=== PATIENT | male | born 1970 | race Caucasian/White ===

== ENCOUNTER 2022-06-14 09:34 | Inpatient (IN) | payer BC ==
[2022-06-14 10:07] LABS: #Eosinphils 0.1 10x3/uL (0.0-0.5); #Monocytes 1.2 10x3/uL (0.0-1.1); #Neutrophils 7.4 10x3/uL (1.5-8.4); %Basophils 0.4 % (0.0-2.0); %Eosinophils 0.6 % (0.0-6.0); %Lymphocytes 12.7 % (18.0-47.0); %Monocytes 12.2 % (0.0-10.0); %Neutrophils 73.3 % (40.0-75.0); Hemoglobin 13.3 g/dL (13.5-17.5); Mean Corpuscular HGB CONC 33.7 g/dL (32.0-36.0); Mean Corpuscular Hemoglobin 30.3 pg (27.0-33.0); Mean Platelet Volume 8.7 fl (7.4-10.4); Platelet Count 239 10x3/uL (150-450); RBC Distribution Width 13.2 % (11.5-14.5); Red Blood Cell (RBC) Count 4.39 10x6/uL (4.32-5.72); White Blood Cell (WBC) Count 10.1 10x3/uL (3.5-10.5)
[2022-06-14 10:19] LABS: ALT (SGPT) 31 U/L (8-55); AST (SGOT) 22 U/L (5-34); Albumin 4.5 g/dL (3.5-5.0); Alkaline Phosphatase 43 U/L (40-110); Anion Gap 18 mmol/L (10-20); BUN (Urea Nitrogen) 18 mg/dL (8.4-25.7); Bilirubin, Total 1.3 mg/dL (0.2-1.2); Calc. Creatinine Clearance 0 mL/min (70-130); Calcium 8.9 mg/dL (7.8-10.44); Carbon Dioxide 19 mmol/L (22-29); Chloride 102 mmol/L (98-107); Estimated GFR 89; Globulin 3.1 g/dL (2.4-3.5); Glucose 135 mg/dL (70-105); Lipase 9 U/L (8-78); Potassium 4.3 mmol/L (3.5-5.1); Protein, Total 7.6 g/dL (6.0-8.3); Sodium 135 mmol/L (136-145)
[2022-06-14] MEDS ORDERED: Morphine 4 MG/ML VIAL ONE ×2 (11:01→11:40)
[2022-06-14 11:20] LABS: CKMB 2.3 ng/mL (0-6.6)
[2022-06-14] MEDS ORDERED: Iopamidol 370 76% 100 ML VIAL ONE (14:31)
[2022-06-14] MEDS ORDERED: Furosemide 40 MG/4 ML VIAL ONE (14:37)
[2022-06-14] MEDS: Furosemide 40 MG/4 ML VIAL SLOW IVP SCH (14:38)
[2022-06-14] MEDS ORDERED: Acetaminophen 325 MG TAB PO PRN (15:01)
[2022-06-14] MEDS ORDERED: Ondansetron PF 4 MG/2 ML Vial IVP PRN (15:01)
[2022-06-14] MEDS ORDERED: Ondansetron ODT 4 MG TAB PO PRN (15:01)
[2022-06-14] MEDS ORDERED: Morphine 4 MG/ML VIAL SLOW IVP PRN (15:05)
[2022-06-14] MEDS ORDERED: Electrolyte Replacement Protocol 1 EACH FS SCH (15:15)
[2022-06-14 16:20] LABS: CKMB 1.9 ng/mL (0-6.6)
[2022-06-14 17:15] VITALS: BMI 37.2
[2022-06-14] MEDS: Carvedilol 12.5 MG TAB PO SCH (20:10)
[2022-06-14] MEDS: Colchicine 0.6 MG TAB PO SCH (20:10)
[2022-06-14] MEDS ORDERED: Apixaban 5 MG TAB PO SCH (21:00)
[2022-06-14 21:41] LABS: CKMB 1.4 ng/mL (0-6.6)
[2022-06-15] MEDS: Furosemide 40 MG/4 ML VIAL SLOW IVP SCH (06:20)
[2022-06-15 07:05] LABS: Magnesium 2.2 mg/dL (1.6-2.6)
[2022-06-15] MEDS: Carvedilol 12.5 MG TAB PO SCH (08:40)
[2022-06-15] MEDS: Colchicine 0.6 MG TAB PO SCH (08:40)
[2022-06-15] MEDS ORDERED: Losartan 25 MG TAB PO SCH (09:00)
[2022-06-15] MEDS ORDERED: Apixaban 5 MG TAB PO SCH (09:00)
[2022-06-15 13:41] VITALS: BP 126/65; TEMP 99.1
[2022-06-15] MEDS ORDERED: Furosemide 40 MG TAB PO SCH (14:00)
== END 2022-06-15 13:59 | disposition home or self-care (01) | DRG 186 ==
LOC: CSHERS 09:34 → CSHERHOLD 14:32 → CSHTELE 16:22
PROVIDERS: ADMIT Internal Medicine; ATTEND Internal Medicine
DX: J90 Pleural effusion, not elsewhere classified (principal); J96.01 Acute respiratory failure with hypoxia; I42.2 Other hypertrophic cardiomyopathy; I10 Essential (primary) hypertension; G47.33 Obstructive sleep apnea (adult) (pediatric); I48.0 Paroxysmal atrial fibrillation; I25.10 Atherosclerotic heart disease of native coronary artery without angina pectoris; Z79.01 Long term (current) use of anticoagulants; Z79.899 Other long term (current) drug therapy; Z95.810 Presence of automatic (implantable) cardiac defibrillator
CPT/HCPCS: 36415; 71045; 71046; 71275; 80053; 82553; 83690; 83735; 84484; 85025; 93005; 93306; 94760; 94762; 96374; 96376; J1650; J1940; J2270; Q9967

== ENCOUNTER 2022-06-20 10:07 | Outpatient (CLI) | payer BC | END 2022-06-20 10:08 | disposition home or self-care (01) | LOC: CSHRAD 10:07 | PROVIDERS: ATTEND Family Medicine | DX: J90 Pleural effusion, not elsewhere classified (principal) | CPT/HCPCS: 71046 ==

== ENCOUNTER 2022-09-03 12:18 | Observation (INO) | payer BC ==
[2022-09-03 12:55] LABS: #Basophils 0.1 10x3/uL (0.0-0.2); #Eosinphils 0.1 10x3/uL (0.0-0.5); #Monocytes 1.1 10x3/uL (0.0-1.1); #Neutrophils 9.4 10x3/uL (1.5-8.4); %Basophils 0.5 % (0.0-2.0); %Eosinophils 1.1 % (0.0-6.0); %Lymphocytes 15.3 % (18.0-47.0); %Monocytes 8.9 % (0.0-10.0); %Neutrophils 73.9 % (40.0-75.0); Hemoglobin 13.7 g/dL (13.5-17.5); Mean Corpuscular HGB CONC 33.7 g/dL (32.0-36.0); Mean Corpuscular Hemoglobin 30.2 pg (27.0-33.0); Mean Corpuscular Volume 89.4 fl (81.2-95.1); Mean Platelet Volume 8.9 fl (7.4-10.4); Platelet Count 213 10x3/uL (150-450); RBC Distribution Width 13.9 % (11.5-14.5); Red Blood Cell (RBC) Count 4.54 10x6/uL (4.32-5.72); White Blood Cell (WBC) Count 12.7 10x3/uL (3.5-10.5)
[2022-09-03 13:28] LABS: CKMB 2.6 ng/mL (0-6.6)
[2022-09-03 13:51] LABS: ALT (SGPT) 28 U/L (8-55); AST (SGOT) 20 U/L (5-34); Albumin 4.2 g/dL (3.5-5.0); Alkaline Phosphatase 53 U/L (40-110); Anion Gap 14 mmol/L (10-20); BUN (Urea Nitrogen) 14 mg/dL (8.4-25.7); CK (CPK) 217 U/L (30-200); Calc. Creatinine Clearance 0 mL/min (70-130); Calcium 8.7 mg/dL (7.8-10.44); Carbon Dioxide 21 mmol/L (22-29); Chloride 106 mmol/L (98-107); Estimated GFR 86; Globulin 2.7 g/dL (2.4-3.5); Glucose 118 mg/dL (70-105); Potassium 3.7 mmol/L (3.5-5.1); Protein, Total 6.9 g/dL (6.0-8.3); Sodium 137 mmol/L (136-145)
[2022-09-03] MEDS ORDERED: Furosemide 40 MG/4 ML VIAL ONE (13:53)
[2022-09-03] MEDS ORDERED: Acetaminophen 325 MG TAB PO PRN (15:09)
[2022-09-03] MEDS ORDERED: Ondansetron ODT 4 MG TAB PO PRN (15:09)
[2022-09-03] MEDS ORDERED: Electrolyte Replacement Protocol 1 EACH FS SCH (15:15)
[2022-09-03 15:47] VITALS: BMI 37.3
[2022-09-03 16:08] LABS: Magnesium 1.8 mg/dL (1.6-2.6)
[2022-09-03 16:23] LABS: Troponin I 0.213 ng/mL (< 0.028)
[2022-09-03] MEDS ORDERED: Magnesium 2 GM/50 ML(in water) 2 GM in Premix Bag 1 BAG IVPB SCH (16:30)
[2022-09-03 19:02] LABS: Troponin I 0.178 ng/mL (< 0.028)
[2022-09-03] MEDS: Carvedilol 12.5 MG TAB PO SCH (20:22)
[2022-09-04 03:27] LABS: #Basophils 0.1 10x3/uL (0.0-0.2); #Eosinphils 0.2 10x3/uL (0.0-0.5); #Monocytes 1.4 10x3/uL (0.0-1.1); #Neutrophils 9.6 10x3/uL (1.5-8.4); %Basophils 0.4 % (0.0-2.0); %Eosinophils 1.1 % (0.0-6.0); %Lymphocytes 14.3 % (18.0-47.0); %Monocytes 10.4 % (0.0-10.0); %Neutrophils 73.3 % (40.0-75.0); Hemoglobin 13.2 g/dL (13.5-17.5); Mean Corpuscular HGB CONC 33.4 g/dL (32.0-36.0); Mean Corpuscular Hemoglobin 30.7 pg (27.0-33.0); Mean Corpuscular Volume 91.9 fl (81.2-95.1); Mean Platelet Volume 8.9 fl (7.4-10.4); Platelet Count 198 10x3/uL (150-450); RBC Distribution Width 13.9 % (11.5-14.5); White Blood Cell (WBC) Count 13.2 10x3/uL (3.5-10.5)
[2022-09-04 04:02] LABS: Anion Gap 14 mmol/L (10-20); BUN (Urea Nitrogen) 13 mg/dL (8.4-25.7); Calc. Creatinine Clearance 127 mL/min (70-130); Calcium 8.6 mg/dL (7.8-10.44); Carbon Dioxide 25 mmol/L (22-29); Chloride 99 mmol/L (98-107); Estimated GFR 68; Glucose 117 mg/dL (70-105); Magnesium 2.2 mg/dL (1.6-2.6); Potassium 3.7 mmol/L (3.5-5.1); Sodium 134 mmol/L (136-145)
[2022-09-04] MEDS: Carvedilol 12.5 MG TAB PO SCH (08:49)
[2022-09-04] MEDS ORDERED: Furosemide 40 MG TAB PO SCH (09:00)
[2022-09-04] MEDS ORDERED: Losartan 25 MG TAB PO SCH (09:00)
[2022-09-04 13:11] VITALS: BP 121/75; TEMP 99.2
[2022-09-04] MEDS ORDERED: Apixaban 5 MG TAB PO SCH (21:00)
== END 2022-09-04 14:50 | disposition home or self-care (01) ==
LOC: CSHERS 12:18 → CSHTELE 15:27
PROVIDERS: ADMIT Internal Medicine; ATTEND Internal Medicine
DX: I11.0 Hypertensive heart disease with heart failure (principal); I50.9 Heart failure, unspecified; I42.2 Other hypertrophic cardiomyopathy; I48.0 Paroxysmal atrial fibrillation; G47.33 Obstructive sleep apnea (adult) (pediatric); R07.9 Chest pain, unspecified; R77.8 Other specified abnormalities of plasma proteins; Z79.01 Long term (current) use of anticoagulants; Z79.899 Other long term (current) drug therapy; Z95.810 Presence of automatic (implantable) cardiac defibrillator
CPT/HCPCS: 36415; 71045; 80048; 80053; 82550; 82553; 83735; 83880; 84484; 85025; 93005; 93306; 94760; 96374; 96375; G0378; J1940; J3475